=== PATIENT | female | born 1985 | race American Indian/Alaskan Native ===

== ENCOUNTER 2019-09-06 15:52 | Emergency (ER) | payer OTHER ==
[~2019-09-06] VITALS: Ht 160 cm; Wt 89.4 kg
[2019-09-06] MEDS ORDERED: ONDANSETRON ODT8 MG PO (19:44)
== END 2019-09-06 20:05 | disposition home or self-care (01) ==
LOC: ED 15:52
DX: R10.10 Upper abdominal pain, unspecified (principal); R11.2 Nausea with vomiting, unspecified; F17.200 Nicotine dependence, unspecified, uncomplicated
CPT/HCPCS: 74177; 80053; 81001; 83690; 84703; 85025; 96361; 96375; 99284-25; C9113; J1170; J2405; J7030

== ENCOUNTER 2019-11-08 14:34 | Emergency (ER) | payer MEDICAID, OTHER ==
[~2019-11-08] VITALS: Ht 160 cm; Wt 89.4 kg
[~2019-11-08 14:34] MED LIST: ONDANSETRON ODT8 MG PO
[2019-11-08] MEDS ORDERED: NORCO 5-325 TA1 EACH PO (16:24)
[2019-11-08] MEDS ORDERED: CRUTCH1 EACH MISC (16:24)
== END 2019-11-08 16:46 | disposition home or self-care (01) ==
LOC: ED 14:34
DX: S93.401A Sprain of unspecified ligament of right ankle, initial encounter (principal); F17.200 Nicotine dependence, unspecified, uncomplicated; Z88.8 Allergy status to other drugs, medicaments and biological substances; X58.XXXA Exposure to other specified factors, initial encounter
CPT/HCPCS: 73610; 99283-25